=== PATIENT | female | born 1985 | race African-American/Black ===

== ENCOUNTER 2016-10-20 14:15 | Emergency (ER) | payer OTHER ==
[~2016-10-20] VITALS: Ht 175.3 cm; Wt 96.4 kg
[~2016-10-20 14:15] MED LIST: ESTRD2 PO; SERT-234 PO; SPR/100 PO
[2016-10-20 14:25] VITALS: Ht 175.3 cm; Wt 96.4 kg
[2016-10-20] MEDS ORDERED: SPIR25TA89 PO (14:40)
[2016-10-20] MEDS ORDERED: BUSP15TA70 PO (14:40)
[2016-10-20] MEDS ORDERED: RISP1TAB68 PO (14:41)
[2016-10-20 14:43] LABS: BASO % 0.1 %; BASO ABS # 0.01 K/uL (0-0.2); COMPLETE YES; EOS % 0.7 %; HEMATOCRIT 41.5 % (37-47); LYMPH % 39.8 %; LYMPH ABS # 2.68 K/uL (1.2-3.4); MEAN CELL VOLUME 89.1 fL (80-100); MEAN CORPUSCULAR HEMOGLOBIN 29.8 pg (25-34); MEAN CORPUSCULAR HGB CONC 33.5 g/dl (32-36); MEAN PLATELET VOLUME 8.1 fL (7.4-10.4); MONO % 7.6 %; NEUT % 51.8 %; PLATELET COUNT 208 K/uL (130-400); RED BLOOD COUNT 4.66 M/uL (4.2-5.4); WHITE BLOOD COUNT 6.73 K/uL (4.8-10.8)
[2016-10-20 15:02] LABS: ALT/SGPT 18 U/L (12-78); BLOOD UREA NITROGEN 14 mg/dl (7-18); BUN/CREATININE RATIO 16.7 (10-20); CALCIUM 8.7 mg/dl (8.5-10.1); CARBON DIOXIDE 32 mmol/L (21-32); CHLORIDE 102 mmol/L (98-107); CREATININE 0.81 mg/dl (0.60-1.20); GLUCOSE 83 mg/dl (70-99); POTASSIUM 3.6 mmol/L (3.5-5.1); SODIUM 138 mmol/L (136-145)
[2016-10-20 15:04] LABS: ACETAMINOPHEN < 2 ug/ml (10-30)
[2016-10-20 15:07] LABS: URINE APPEARANCE CLEAR (CLEAR); URINE BILIRUBIN NEG (NEG); URINE COLOR YELLOW; URINE NITRITE NEG (NEG); URINE PH 6.5 (4.5-7.5); URINE SPECIFIC GRAVITY 1.031 (1.000-1.030); UROBILINOGEN NEG (NEG)
[2016-10-20 15:10] LABS: PREG INTERNAL NEGATIVE QC NEG CLEAR BACKGROUND; PREG INTERNAL POSITIVE QC POS CONTROL LINE
[2016-10-20 15:12] LABS: ALB/GLOB RATIO 0.8 (0.9-2); ALKALINE PHOSPHATASE 71 U/L (45-117); AST/SGOT 14 U/L (15-37)
[2016-10-20 15:16] LABS: MANUAL MICROSCOPIC REQUIRED? NO; REVIEW REQ? NO
[2016-10-20 15:29] LABS: BENZODIAZEPINE, URINE NEG (NEG); COCAINE,URINE NEG (NEG); PHENCYCLIDINE, URINE NEG (NEG)
[2016-10-20] MEDS ORDERED: ESTRADIOL 1 MG TAB PO STA (22:11)
[2016-10-20] MEDS ORDERED: BusPIRone 15 MG TAB PO STA (22:11)
--- NOTE | 2016-10-20 22:11 | EMERGENCY ROOM VISIT NOTE ---
History Report prepared by Donovan: Raymundo Copeland Under the Supervision of: Dr. Hank Tomas M.D. First contact with patient: 14:34 Chief Complaint: PSYCHIATRIC PROBLEMS Stated Complaint: MENTAL HEALTH History of Present Illness The patient is a 31 year old female who presents to the Emergency Room with complaints of psychiatric problems and overdose occurring last night around 1999. The patient states that last night she took a handful of Risperdal, and she chose this over cutting herself. She states that she was going to take more this morning, but she was too out of it to even move. She denies drinking any alcohol. The patient states she recently went to the doctor to check on the cuts on her wrists that she did about a week ago. She states that she wants to be transferred to the [facility] in [place], and she states that she has been there before. The patient states that she has a history of PTSD, bipolar type 2 disorder, personality disorder, anxiety, and mass depression. Pt denies LOC, headache, fevers, chills, diaphoresis, visual changes, neck pain, chest pain, breathing difficulties, nausea, vomiting, abdominal pain, back pain, melena, hematochezia, urinary symptoms, numbness, weakness, lymphadenopathy, rash, or other complaints. Source of History: patient Onset: 1999 last night Position: other (global) Quality: other (overdose and phychiatric problems) Review of Systems See HPI for pertinent positives and negatives. A total of ten systems were reviewed and were otherwise negative. Past Medical & Surgical Medical Problems: (1) Anxiety (2) Bipolar 2 disorder (3) Borderline personality disorder (4) Depression (5) PTSD (post-traumatic stress disorder) (6) Schizoaffective disorder Family History FH: bipolar disorder FH: depression Social History Smoking Status: Never Smoker Alcohol Use: occasionally Drug Use: none Marital Status: single Housing Status: lives with roommate Occupation Status: employed Current/Historical Medications Scheduled Buspirone Hcl (Buspar), 15 MG PO BID Estradiol (Estradiol), 2 MG PO BID Risperidone (Risperdal), 1 MG PO HS Spironolactone (Aldactone), 50 MG PO BID Allergies Coded Allergies: Wheat (Unverified Allergy, Unknown, GI UPSET, 10/20/16) Uncoded Allergies: DIARY PRODUCTS (Allergy, Severe, GI SYMPTOMS, 01/25/15) Physical Exam Vital Signs Date Time Temp Pulse Resp B/P Pulse Ox O2 Delivery O2 Flow Rate FiO2 10/20/16 16:28 81 18 109/68 100 Room Air 10/20/16 14:25 36.5 84 18 122/69 97 Room Air Physical Exam GENERAL: Awake, alert, well appearing, no distress HENT: Normocephalic, atraumatic. TM's normal. Oropharynx unremarkable. EYES: PERRL. EOMI. Normal conjunctiva. Sclera non-icteric. NECK: Supple. No nuchal rigidity. FROM. No JVD or bruit. RESPIRATORY: CTA CARDIAC: RRR. No murmur. ABDOMEN: Soft, non distended. No tenderness to palpation. No rebound or guarding. No masses. MUSCULOSKELETAL: Unremarkable. No edema. No discoloration. Gross motor strength symmetric. NEURO: Cranial nerves 2-12 grossly intact. Normal sensorium. No sensory or motor deficits noted. Speech normal. No pronator drift. SKIN: No rash or jaundice noted. LYMPH: No adenopathy. PSYCH: Depressed mood. Flat affect. Some suicidal ideation. No homicidal ideation. Medical Decision & Procedures Laboratory Results 10/20/16 14:25 Red Blood Count 4.66, Mean Corpuscular Volume 89.1, Mean Corpuscular Hemoglobin 29.8, Mean Corpuscular Hemoglobin Concent 33.5, Mean Platelet Volume 8.1, Neutrophils (%) (Auto) 51.8, Lymphocytes (%) (Auto) 39.8, Monocytes (%) (Auto) 7.6, Eosinophils (%) (Auto) 0.7, Basophils (%) (Auto) 0.1, Neutrophils # (Auto) 3.48, Lymphocytes # (Auto) 2.68, Monocytes # (Auto) 0.51, Eosinophils # (Auto) 0.05, Basophils # (Auto) 0.01 10/20/16 14:25 Test 10/20/16 00:00 10/20/16 14:25 Urine Color YELLOW Urine Appearance CLEAR (CLEAR) Urine pH 6.5 (4.5-7.5) Urine Specific [place] 1.031 (1.000-1.030) Urine Protein NEG (NEG) Urine Glucose (UA) NEG (NEG) Urine Ketones TRACE (NEG) Urine Occult Blood NEG (NEG) Urine Nitrite NEG (NEG) Urine Bilirubin NEG (NEG) Urine Urobilinogen NEG (NEG) Urine Leukocyte Esterase NEG (NEG) Urine Test NEG (NEG) Urine Opiates Screen POS (NEG) Urine Methadone, Qualitative NEG (NEG) Urine Barbiturates NEG (NEG) Urine Phencyclidine (PCP) Level NEG (NEG) Ur Amphetamine/Methamphetamine NEG (NEG) MDMA (Ecstasy) Screen NEG (NEG) Urine Benzodiazepines Screen NEG (NEG) Urine Cocaine Metabolite NEG (NEG) Urine Marijuana (THC) NEG (NEG) White Blood Count 6.73 K/uL (4.8-10.8) Red Blood Count 4.66 M/uL (4.2-5.4) Hemoglobin 13.9 g/dL (12.0-16.0) Hematocrit 41.5 % (37-47) Mean Corpuscular Volume 89.1 fL (80-100) Mean Corpuscular Hemoglobin 29.8 pg (25-34) Mean Corpuscular Hemoglobin Concent 33.5 g/dl (32-36) Platelet Count 208 K/uL (130-400) Mean Platelet Volume 8.1 fL (7.4-10.4) Neutrophils (%) (Auto) 51.8 % Lymphocytes (%) (Auto) 39.8 % Monocytes (%) (Auto) 7.6 % Eosinophils (%) (Auto) 0.7 % Basophils (%) (Auto) 0.1 % Neutrophils # (Auto) 3.48 K/uL (1.4-6.5) Lymphocytes # (Auto) 2.68 K/uL (1.2-3.4) Monocytes # (Auto) 0.51 K/uL (0.11-0.59) Eosinophils # (Auto) 0.05 K/uL (0-0.5) Basophils # (Auto) 0.01 K/uL (0-0.2) RDW Standard Deviation 44.3 fL (36.4-46.3) RDW Coefficient of Variation 13.7 % (11.5-14.5) Immature Granulocyte % (Auto) 0.0 % Immature Granulocyte # (Auto) 0.00 K/uL (0.00-0.02) Anion Gap 4.0 mmol/L (3-11) Est Creatinine Clear Calc Drug Dose 123.3 ml/min Estimated GFR () 111.4 Estimated GFR (Non- 96.1 BUN/Creatinine Ratio 16.7 (10-20) Calcium Level 8.7 mg/dl (8.5-10.1) Total Bilirubin 0.3 mg/dl (0.2-1) Direct Bilirubin < 0.1 mg/dl (0-0.2) Aspartate Amino Transf (AST/SGOT) 14 U/L (15-37) Alanine Aminotransferase (ALT/SGPT) 18 U/L (12-78) Alkaline Phosphatase 71 U/L (45-117) Total Protein 7.5 gm/dl (6.4-8.2) Albumin 3.4 gm/dl (3.4-5.0) Globulin 4.1 gm/dl (2.5-4.0) Albumin/Globulin Ratio 0.8 (0.9-2) Thyroid Stimulating Hormone (TSH) 2.710 uIu/ml (0.300-4.500) Salicylates Level < 1.7 mg/dl (2.8-20) Acetaminophen Level < 2 ug/ml (10-30) Ethyl Alcohol mg/dL < 3.0 mg/dl (0-3) Laboratory results reviewed by me ECG Indication: other (overdose) Rate (beats per minute): 71 Rhythm: normal sinus Findings: no acute ischemic change, no ectopy ED Course 1434: The patient was evaluated in room C12. A complete history and physical exam was performed. 1540: I reevaluated the patient, and she is fine. 1632: The patient was not accepted to [facility], she will be placed elsewhere 2046: We are still waiting on a bed for this patient. 2129: The patient was signed out to Dr. Johnson. We are still trying to find a bed in [place] for the patient. Medical Decision Triage Nursing notes reviewed. The patient's presentation and history were concerning for suicidal ideation. EtiOlogies such as mood disorder, toxicologic, infection, hypoglycemia, electrolyte abnormalities, cardiac sources, intracerebral event, neurologic, as well as others were entertained. The patient was evaluated. She was doing relatively well. She was sent from the primary clinic for medical clearance prior to going to the [place] psychiatric facility. The patient had unremarkable CBC, urinalysis, chemistry panel, LFTs, TSH, test, alcohol, Tylenol, and aspirin level. The [place] psychiatric facility in [place] was contacted. Unfortunately they are unable to access anyone there unless they arrive prior to 4 PM. It would not be feasible possible. They did authorize for the patient to be admitted elsewhere this evening. A bed search was underway. Our facility is full as is the [facility]. The patient is currently being evaluated by [place] [facility]. The case was signed out to Dr. Johnson at the change of shift. Please see his note for disposition. Daily medications ordered. The chart was completed utilizing [employer] Speech voice recognition software. Grammatical errors, random word insertions, pronoun errors, and incomplete sentences are an occasional consequence of this system due to software limitations, ambient noise, and hardware issues. Any formal questions or concerns about the content, text, or information contained within the body of this dictation should be directly addressed to the physician for clarification. Impression Primary Impression: Mood disorder Additional Impression: Suicidal ideation Scribe Attestation The scribe's documentation has been prepared under my direction and personally reviewed by me in its entirety. I confirm that the note above accurately reflects all work, treatment, procedures, and medical decision making performed by me. Departure Information Dispostion Still a Patient Referrals Evelyn Land (PCP) Patient Instructions My [facility] Problem Qualifiers
[2016-10-20] MEDS ORDERED: SPIRONOLACTONE 25 MG TAB PO ONE (22:15)
[2016-10-20] MEDS ORDERED: RISPERIDONE 1 MG TAB PO ONE (22:15)
--- NOTE | 2016-10-20 23:42 | EMERGENCY ROOM VISIT NOTE ---
ED Visit Note First contact with patient: 23:41 I received this patient at change of shift signout from Dr. COOPER. Please see his note for complete history and physical. The patient is a 31-year-old patient who presented to the emergency department for a mental health evaluation. The patient has had very significant depression symptoms. The patient is also had a recent suicidal gesture with an attempt to take her medications with thoughts of harming herself. The patient was medically cleared in the emergency department. Bed search was underway when I received the patient. At this time she is a voluntary admission. I discussed the case with the emergency department mental health case fitter. At this time the bed search has been suspended until morning when the patient can be referred again to the [facility] [place]. The patient was signed out to Dr. Suresh at change of shift. Please see her note for continuation of care.
--- NOTE | 2016-10-21 04:57 | EMERGENCY ROOM VISIT NOTE ---
ED Visit Note First contact with patient: 01:39 This case was signed out to me at change of shift by Dr. Johnson. The bed search was suspended. The patient [facility] be reeval[facility] in [facility] 0230: Patient is resting comfortably at this time. 0500: The patient is resting comfortably. Morning medications were ordered. 0630: case will be signed out to Dr. Serra at change of shift and the bed search will be resumed.
[2016-10-21] MEDS ORDERED: BusPIRone 15 MG TAB PO SCH (09:00)
[2016-10-21] MEDS ORDERED: SPIRONOLACTONE 25 MG TAB PO SCH (09:00)
[2016-10-21] MEDS ORDERED: ESTRADIOL 1 MG TAB PO SCH (09:00)
--- NOTE | 2016-10-21 15:44 | EMERGENCY ROOM VISIT NOTE ---
ED Visit Note First contact with patient: 06:23 I received this patient in signout at the change of shift from Dr. Halima Suresh pending transferred to the [facility] for inpatient psychiatric treatment. The patient has been accepted to the [facility] but is awaiting transportation. At this time she is resting comfortably and has no complaints. She has signed a 201 and is awaiting transport. The case will be signed out to Dr. Foss at the change of shift.
[2016-10-21] MEDS ORDERED: ESTRADIOL 1 MG TAB PO STA (16:29)
[2016-10-21 20:53] VITALS: BP 128/68; PULSE 77; TEMP 36.7; O2SAT 98
[2016-10-24 00:06] LABS: COD UR NEGATIVE NG/ML (CUTOFF=50); HYDROCOD UR NEGATIVE NG/ML (CUTOFF=50); HYDROMOR UR NEGATIVE NG/ML (CUTOFF=50); MORPHINE UR 192 NG/ML (CUTOFF=50); NORHYDROCODONE CONF UR NEGATIVE NG/ML (CUTOFF=50); OXYMORPH UR NEGATIVE NG/ML (CUTOFF=50)
== END 2016-10-21 20:45 | disposition other institution (70) ==
LOC: EDBD 14:15 → C.EDA 14:16
DX: F39 Unspecified mood [affective] disorder (principal); R45.851 Suicidal ideations; Z81.8 Family history of other mental and behavioral disorders

== ENCOUNTER 2019-03-31 10:20 | Inpatient (IN) ==
--- OUTSIDE RECORDS SUMMARY | 2019-03-31 10:22 | External Medical Summary | Continuity of Care Document ---
:1985 Author Name Katherine Boateng Address Unavailable Unavailable , Care Team Providers Name Role Phone [email or web address] [email or web address] Kike Boateng Unavailable [email or web address] Rachid LAND Unavailable Unavailable Unavailable Unavailable Unavailable Problems High risk medication use (V58.69) (Z79.899) Obesity (278.00) (E66.9) Schizoaffective disorder (295.70) (F25.9) High risk sexual behavior (V69.2) (Z72.51) Insomnia (780.52) (G47.00) Encounter for routine gynecological examination (V72.31) (Z0 1.419) Transgendered (302.50) (F64.1) Allergies and Adverse Reactions No Known Drug Allergies (Allergy) Dairy (Allergy) Medications Estradiol 2 MG Oral Tablet; Take 1 tablet twice daily ALY Land Start: 11-Sep-2014 Quantity: 60 Refills: 2 Benztropine Mesylate 1 MG Oral Tablet; TAKE 1 TABLET T WICE DAILY. ALY Land Start: 02-Oct-2014 Quantity: 60 Refills: 0 carBAMazepine 200 MG Oral Tablet; TAKE 2 TABLETS TWICE DAILY ALY Land Start: 11-Sep-2014 Quantity: 120 Refills: 0 QUEtiapine Fumarate 400 MG Oral Tablet; TAKE 2 TABLETS AT [facility]. Start: 22-Aug-2015 Refills: 0 Premarin 0.625 MG/GM Vaginal Cream; Tuesdays and Thursdays W ALY ledesma Start: 11-Sep-2014 Quantity: 1 30 GM Tube Refills: 2 Spironolactone 50 MG Oral Tablet; TAKE 1 TABLET TWICE DAILY. ALY Land Start: 11-Sep-2014 Quantity: 60 Refills: 6 Procedures History of Breast Reconstruction With Implant Prosthesis Status: Completed History of Eye Surgery Status: Completed History of Sex Reassignment Male To Female Status: Completed Immunizations Immunizations not documented Family History Mother Family history of diabetes mellitus (V18.0) (Z83.3) Status: Active Family history of muscular dystrophy (V17.2) (Z82.0) Status: Active Family history of schizophrenia (V17.0) (Z81.8) Status: Acti ve Family history of Multiple personality (300.14) (F44.81) Sta tus: Active Father Family history of diabetes mellitus (V18.0) (Z83.3) Status: Active Family history of muscular dystrophy (V17.2) (Z82.0) Status: Active Family history of schizophrenia (V17.0) (Z81.8) Status: Acti ve Family history of Multiple personality (300.14) (F44.81) Sta tus: Active Sibling Family history of epilepsy (V17.2) (Z82.0) Status: Active Social History - Smoking Status Never smoker Plan of Treatment Planned Observations Planned Goals not documented Results No Known Results Results not documented
[2019-03-31 11:06] LABS: Appearance Urine Clear (Clear); Bilirubin Urine Negative (Negative); Blood Urine Negative (Negative); Color Urine Yellow; Glucose Urine UA Negative (Negative); Ketones Urine Negative (Negative); Leukocyte Esterase Urine Negative (Negative); Nitrite Urine Negative (Negative); Protein Urine Negative (Negative); Specific Gravity Urine 1.015 (1.000-1.030); Urobilinogen Urine Negative (Negative)
[2019-03-31 11:14] LABS: Basophils # (auto) 0.01 K/uL (0-0.2); Basophils % (auto) 0.2 %; Eosinophils # (auto) 0.05 K/uL (0-0.5); Eosinophils % (auto) 0.9 %; Hematocrit (blood only) 40.3 % (37-47); Hemoglobin 13.2 g/dL (12.0-16.0); Immature Granulocytes # (auto) 0.01 K/uL (0.00-0.02); Immature Granulocytes % (auto) 0.2 %; Lymphocytes # (auto) 2.06 K/uL (1.2-3.4); Lymphocytes % (auto) 38.9 %; Mean Corpuscular Hgb Conc 32.8 g/dL (32-36); Mean Platelet Volume 8.1 fL (7.4-10.4); Monocytes # (auto) 0.38 K/uL (0.11-0.59); Monocytes % (auto) 7.2 %; Neutrophils # (auto) 2.79 K/uL (1.4-6.5); Neutrophils % (auto) 52.6 %; Platelet Count 212 K/uL (130-400); RDW Coefficient of Variation 14.9 % (11.5-14.5); RDW Standard Deviation 47.8 fL (36.4-46.3); Red Blood Count 4.58 M/uL (4.2-5.4)
[2019-03-31 11:31] LABS: Alanine Aminotransferase 26 U/L (12-78); Albumin Level 3.5 gm/dl (3.4-5.0); Aspartate Aminotransferase 16 U/L (15-37); BUN Creatinine Ratio 9.9 (10-20); Blood Urea Nitrogen 9 mg/dl (7-18); Calcium 8.5 mg/dl (8.5-10.1); Carbon Dioxide 29 mmol/L (21-32); Chloride 106 mmol/L (98-107); Est GFR (African American) 91.1; Est GFR (Non-African American) 78.6; Glucose 89 mg/dl (70-99); Potassium 3.8 mmol/L (3.5-5.1); Sodium 140 mmol/L (136-145)
[2019-03-31 11:35] LABS: Amphetamines+Metham, Urine Neg (Neg); Barbiturates, Urine Neg (Neg); Benzodiazepine, Urine Neg (Neg); Cocaine, Urine Neg (Neg); MDMA (Ecstacy), Urine Pos (Neg); Methadone, Urine Neg (Neg); Opiate, Urine Neg (Neg); Phencyclidine, Urine Neg (Neg)
[2019-03-31 11:41] LABS: Albumin Globulin Ratio 0.9 (0.9-2); Alkaline Phosphatase 74 U/L (45-117); Bilirubin,Total 0.3 mg/dl (0.2-1); Globulin 3.8 gm/dl (2.5-4.0); Total Protein 7.3 gm/dl (6.4-8.2)
[2019-03-31 11:44] LABS: Acetaminophen < 2 ug/ml (10-30); Salicylate < 1.7 mg/dl (2.8-20)
--- NOTE | 2019-03-31 13:09 | Emergency Department Note ---
Entered by Emilee Strange acting as a scribe for History of Present Illness General Chief complaint: Mental Health Evaluation Stated complaint: mhid Source: patient History of Present Illness Provider complaint: suicidal ideation Onset (ago): unknown (constant) Location: left and right Severity: similar to prior episodes Maximum Pain Intensity: 0 Quality: + other (suicidal ideation) Relieved By: + medication Associated symptoms: + other (Negative abdominal pain); no chest pain, no fever/chills and no nausea/vomiting The patient is a 34 year old female who presents to the Emergency Room with complaints of suicidal ideation. The patient states that she has worsening depression and medication has helped "balance her out". The patient reports visual hallucination of a little girls, a man with a black zavala, and a centipede with a face. She states visual hallucinations are not unusual for her. The patient reports two days ago she drank a teaspoon of household bleach and Febreeze.this was not an attempt to hurt her self. The patient denies recent cutting incidents but has done so in the past. The patient denies fever, vomiting, chest pain or abdominal pain. She denies any drug or alcohol use. She was evaluated by can help and referred here for further care. Home Medications Home Medications Medication Instructions Recorded Confirmed Type estradiol cypionate 1 dose IM [id number] 05/24/18 03/31/19 History [Depo-Estradiol] aripiprazole [Daniel Maintena] 300 mg IM DIRECTED 03/31/19 03/31/19 History hydroxyzine HCl 10 mg PO QID PRN 03/31/19 03/31/19 History melatonin 3 mg PO HS PRN 03/31/19 03/31/19 History methylphenidate 18 mg PO QAM 03/31/19 03/31/19 History omeprazole 20 mg PO DAILY 03/31/19 03/31/19 History prazosin 2 mg PO BID 03/31/19 03/31/19 History trazodone 100 mg PO DAILY 03/31/19 03/31/19 History Allergies Allergy/AdvReac Type Severity Reaction Status Date / Time milk Allergy Severe GI SYMPTOMS Verified 03/31/19 10:47 wheat Allergy Unknown GI UPSET Verified 03/31/19 10:47 Past Med/Surg History Medical History Suicidal ideation (Acute) Depression Social History Preferred Language: Indonesian Feels Safe at Home: Yes Smoking Status: Never smoker Review of Systems See HPI for pertinent positives & negatives. and A total of 10 systems reviewed and were otherwise negative Physical Exam Vital Signs Vital Signs - 24 hr 03/31/19 10:37 Temperature 36.8 C Temperature Source Oral Sepsis Recent Fever Within 48 Hours No Sepsis New/Unexplained Change in Mental Status No Sepsis Action Taken by Nursing No Action Required Pulse Rate 77 Pulse Rhythm Regular Pulse Strength Normal Respiratory Rate 18 Respiratory Effort / Characteristics Non-Labored Spontaneous Respiratory Depth Normal Respiratory Pattern Regular Blood Pressure 129/68 Blood Pressure Mean 88 Pulse Oximetry 98 Oxygen Delivery Method Room Air Constitutional: Vital signs reviewed. Eyes: Pupils are equal round reactive to light. Conjunctiva are noninjected. ENT: Pharynx is clear without erythema or exudate. Mucous membranes are moist. Neck supple without meningeal signs. Respiratory: Clear to auscultation bilaterally. Breath sounds are equal bilaterally. Cardiovascular: Regular rate and rhythm. No rubs or gallops. GI: Soft, nondistended and nontender. Bowel sounds are present. Musculoskeletal: No peripheral edema. Healed lacerations to the right wrist. Integumentary: No cyanosis. Neurological: The patient is awake and alert. No focal deficits. Psychiatric: Flat affect. Not tearful Course 1113: Past medical records reviewed. The patient was evaluated in room A7. A complete history and physical exam was performed.' [id number]: Upon reevaluation, the patient is resting. I discussed findings and results with her. She verbalized agreement of the treatment plan. She accepted further evaluation from [address] [place] [address]. Administered Medications Medical Decision Making Differential Diagnosis Differential Diagnosis includes: Mood disorder, suicidal gesture, post traumatic stress disorder, illicit drug use, overdose as well as others were entertained. Medical Records Attestation: I reviewed the patient's medical records. The patient was seen in 2018 for mental health reasons. The patient was accepted to an inpatient psychiatric facility. The patient has a history of worsening depression, SI, visual hallucinations, MDD, anxiety, PTSD, borderline personality disorder and psychosis. The patient drank bleach and Febreeze 3 days ago. Home Medications Current Medication List: was personally reviewed by me Laboratory Data Attestation: I reviewed the patient's lab results. Result diagrams: 03/31/19 11:03 03/31/19 11:03 Lab Results 03/31/19 03/31/19 03/31/19 Range/Units 10:30 10:30 11:03 WBC 5.30 (4.8-10.8) K/uL RBC 4.58 (4.2-5.4) M/uL Hgb 13.2 (12.0-16.0) g/dL Hct 40.3 (37-47) % MCV 88.0 (80-100) fL MCH 28.8 (25-34) pg MCHC 32.8 (32-36) g/dL RDW Std Deviation 47.8 H (36.4-46.3) fL RDW Coeff of Faviola 14.9 H (11.5-14.5) % Plt Count 212 (130-400) K/uL MPV 8.1 (7.4-10.4) fL Immature Gran % (Auto) 0.2 % Neut % (Auto) 52.6 % Lymph % (Auto) 38.9 % Patrick % (Auto) 7.2 % Eos % (Auto) 0.9 % Baso % (Auto) 0.2 % Immature Gran # (Auto) 0.01 (0.00-0.02) K/uL Neut # (Auto) 2.79 (1.4-6.5) K/uL Lymph # (Auto) 2.06 (1.2-3.4) K/uL Patrick # (Auto) 0.38 (0.11-0.59) K/uL Eos # (Auto) 0.05 (0-0.5) K/uL Baso # (Auto) 0.01 (0-0.2) K/uL Sodium (136-145) mmol/L Potassium (3.5-5.1) mmol/L Chloride (98-107) mmol/L Carbon Dioxide (21-32) mmol/L Anion Gap (3-11) BUN (7-18) mg/dl Creatinine (0.6-1.2) mg/dl Est Cr Clr Drug Dosing Est GFR ( Amer) Est GFR (Non-Af Amer) BUN/Creatinine Ratio (10-20) Glucose (70-99) mg/dl Calcium (8.5-10.1) mg/dl Total Bilirubin (0.2-1) mg/dl AST (15-37) U/L ALT (12-78) U/L Alkaline Phosphatase (45-117) U/L Total Protein (6.4-8.2) gm/dl Albumin (3.4-5.0) gm/dl Globulin (2.5-4.0) gm/dl Albumin/Globulin Ratio (0.9-2) TSH (0.300-4.500) uIu/ml Urine Color Yellow Urine Appearance Clear (Clear) Urine pH 5.0 (4.5-7.5) Ur Specific [place] 1.015 (1.000-1.030) Urine Protein Negative (Negative) Urine Glucose (UA) Negative (Negative) Urine Ketones Negative (Negative) Urine Blood Negative (Negative) Urine Nitrite Negative (Negative) Urine Bilirubin Negative (Negative) Urine Urobilinogen Negative (Negative) Ur Leukocyte Esterase Negative (Negative) Salicylates (2.8-20) mg/dl Urine Opiates Screen Neg (Neg) Ur Methadone, Qual Neg (Neg) Acetaminophen (10-30) ug/ml Urine Barbiturates Neg (Neg) Ur Phencyclidine (PCP) Neg (Neg) U Amphetamin/Meth Scrn Neg (Neg) MDMA (Ecstasy) Screen Pos H (Neg) U Benzodiazepines Scrn Neg (Neg) Ur Cocaine Metabolite Neg (Neg) U Marijuana (THC) Screen Neg (Neg) Ethyl Alcohol mg/dL (0-3) mg/dl 03/31/19 03/31/19 03/31/19 Range/Units 11:03 11:03 11:03 WBC (4.8-10.8) K/uL RBC (4.2-5.4) M/uL Hgb (12.0-16.0) g/dL Hct (37-47) % MCV (80-100) fL MCH (25-34) pg MCHC (32-36) g/dL RDW Std Deviation (36.4-46.3) fL RDW Coeff of Faviola (11.5-14.5) % Plt Count (130-400) K/uL MPV (7.4-10.4) fL Immature Gran % (Auto) % Neut % (Auto) % Lymph % (Auto) % Patrick % (Auto) % Eos % (Auto) % Baso % (Auto) % Immature Gran # (Auto) (0.00-0.02) K/uL Neut # (Auto) (1.4-6.5) K/uL Lymph # (Auto) (1.2-3.4) K/uL Patrick # (Auto) (0.11-0.59) K/uL Eos # (Auto) (0-0.5) K/uL Baso # (Auto) (0-0.2) K/uL Sodium 140 (136-145) mmol/L Potassium 3.8 (3.5-5.1) mmol/L Chloride 106 (98-107) mmol/L Carbon Dioxide 29 (21-32) mmol/L Anion Gap 5.0 (3-11) BUN 9 (7-18) mg/dl Creatinine 0.94 (0.6-1.2) mg/dl Est Cr Clr Drug Dosing Not Reportable Est GFR ( Amer) 91.1 Est GFR (Non-Af Amer) 78.6 BUN/Creatinine Ratio 9.9 L (10-20) Glucose 89 (70-99) mg/dl Calcium 8.5 (8.5-10.1) mg/dl Total Bilirubin 0.3 (0.2-1) mg/dl AST 16 (15-37) U/L ALT 26 (12-78) U/L Alkaline Phosphatase 74 (45-117) U/L Total Protein 7.3 (6.4-8.2) gm/dl Albumin 3.5 (3.4-5.0) gm/dl Globulin 3.8 (2.5-4.0) gm/dl Albumin/Globulin Ratio 0.9 (0.9-2) TSH 2.890 (0.300-4.500) uIu/ml Urine Color Urine Appearance (Clear) Urine pH (4.5-7.5) Ur Specific [place] (1.000-1.030) Urine Protein (Negative) Urine Glucose (UA) (Negative) Urine Ketones (Negative) Urine Blood (Negative) Urine Nitrite (Negative) Urine Bilirubin (Negative) Urine Urobilinogen (Negative) Ur Leukocyte Esterase (Negative) Salicylates < 1.7 L (2.8-20) mg/dl Urine Opiates Screen (Neg) Ur Methadone, Qual (Neg) Acetaminophen < 2 L (10-30) ug/ml Urine Barbiturates (Neg) Ur Phencyclidine (PCP) (Neg) U Amphetamin/Meth Scrn (Neg) MDMA (Ecstasy) Screen (Neg) U Benzodiazepines Scrn (Neg) Ur Cocaine Metabolite (Neg) U Marijuana (THC) Screen (Neg) Ethyl Alcohol mg/dL < 3.0 (0-3) mg/dl Blood Pressure Blood Pressure Findings: Elevated blood pressure Blood Pressure Disposition: elevated BP felt to be situational MDM Narrative I did evaluate the patient as noted above. The patient was sent here by [facility] due to an intentional ingestion of bleach and Febreeze as well as suicidal ideation. The patient does have a history of depression as well as PTSD. She denies any physical complaints. The ingestion was 2 days ago and she only had a teaspoon of each substance. I did order a urine analysis. I did order and review the patient's blood work as noted in the electronic medical record. Her labs are unremarkable. I did medically clear the patient. The patient was evaluated by 3 S. She was admitted upstairs to the behavioral health floor. Impression & Plan Suicidal ideation, Mood disorder, Bleach ingestion Discharge Plan Visit Data Chief Complaint: Mental Health Evaluation Stated Complaint: mhid ED Provider: Suhas Ny Discharge Problem: Suicidal ideation, Mood disorder, Bleach ingestion Patient Disposition: Being Evaluated by Hospitalist Discharge Instructions Interventions: ED Discharge Assessment Last Done: 03/31/19 16:20 Discharge Problem: Bleach ingestion Qualifiers: Encounter type: initial encounter Injury intent: intentional self-harm Qualified Code(s): T54.92XA - Toxic effect of unspecified corrosive substance, intentional self-harm, initial encounter The ronnellibvik's documentation has been prepared under my direction and personally reviewed by me in its entirety. I confirm that the note above accurately reflects all work, treatment, procedures, and medical decision making performed by me.
[2019-03-31] MEDS ORDERED: hydrOXYzine HCl 10 MG TAB PO PRN (15:25)
[2019-03-31] MEDS ORDERED: ACETAMINOPHEN 325 MG TAB PO PRN (15:28)
[2019-03-31] MEDS ORDERED: BISMUTH SUBSALICYLATE PER ML OMNICELL CHARGE PO PRN (15:28)
[2019-03-31] MEDS ORDERED: ALUMINUM/MAGNESIUM SUSP 30 ML UDC PO PRN (15:28)
[2019-03-31] MEDS ORDERED: SODIUM CHLORIDE 0.65% NA SOLN 45 ML (OCEAN) PRN (15:28)
[2019-03-31] MEDS ORDERED: MAGNESIUM HYDROXIDE SUSP 30 ML UDC PO PRN (15:28)
[2019-03-31] MEDS ORDERED: ARIPIPRAZOLE 300 MG IM SCH (15:30)
[2019-03-31] MEDS ORDERED: ESTRADIOL CYPIONATE 5 MG IM SCH (15:30)
[2019-03-31] MEDS ORDERED: TRAZODONE HCL 100 MG TAB PO SCH (21:00)
[2019-03-31] MEDS: IBUPROFEN 800 MG TAB PO SCH (21:21)
[2019-03-31] MEDS: guaiFENesin 200 MG TAB PO SCH (21:21)
[2019-03-31] MEDS: TRAZODONE HCL 100 MG TAB PO SCH (21:22)
[2019-03-31] MEDS: PRAZOSIN HCL 1 MG CAP PO SCH (21:22)
[2019-03-31] MEDS: ALBUTEROL HFA 8 GM INHALER INH SCH (21:22)
[2019-03-31] MEDS ORDERED: NON-FORMULARY MEDICATION (Melatonin 6 MG) PO SCH (22:00)
[2019-04-01] MEDS ORDERED: LORATADINE 10 MG TAB PO SCH (09:00)
[2019-04-01] MEDS ORDERED: PREMARIN VAG CRM 14 APPLN/30 GM TUBE PV SCH (09:00)
[2019-04-01] MEDS: PANTOprazole 40 MG TAB PO SCH (10:00)
[2019-04-01] MEDS: ALBUTEROL HFA 8 GM INHALER INH SCH ×3 (10:01→21:24)
[2019-04-01] MEDS: IBUPROFEN 800 MG TAB PO SCH (10:06)
[2019-04-01] MEDS: guaiFENesin 200 MG TAB PO SCH (10:07)
[2019-04-01] MEDS: PRAZOSIN HCL 1 MG CAP PO SCH ×2 (10:07→21:24)
--- NOTE | 2019-04-01 16:10 | History & Physical ---
Date of Service April 01, 2019 Impression / Recommendations Impression This 34-year-old woman presents with a known diagnosis of bipolar disorder as well as a diagnosis of borderline personality disorder and posttraumatic stress disorder. She was admitted on the recommendation of an outpatient provider after the outpatient provider was informed by the patient that the patient had sequentially placed liquid bleach and a liquid fabric softener into her mouth, but probably expelled both without swallowing either because of the noxious taste. This reportedly had occurred on the day prior to her presentation in the emergency room, and at the time of her evaluation in the emergency room the patient was denying suicidal ideation. Today, she tells me that she was, in fact, having vague thoughts of suicide when she placed the foreign substances into her mouth, but tells me that she was primarily focused on trying to "reset" her circumstances, which she described as being "stuck." She also tells me that she was frightened and disturbed by the recurrence of her troubling visual hallucinations which include at various times images of the same 3 things; namely a group of young girls playing "peConnected," a large centipede with the face of a human being, and a cloaked hooded figure that she says appears to be a ghoul. She does not recognize any of the figures, but finds these hallucinations to be very disturbing. The patient does tell me that although she does not have a known history of a seizure disorder, she has had one concussion and was rendered unconscious by a head injury that occurred prior to the onset of the visual hallucinations. The patient's symptoms of bipolar disorder reportedly include fairly typical symptoms of depression during the depressed phase as well as manic symptoms that include excessive spending, increased energy, impulsive behaviors, including impulsive spending and impulsive sexual behaviors. She tells us that she has been feeling somewhat depressed for the past month or so, but that her decision to consume noxious chemical substances was unplanned and impulsive. The patient's visual hallucinations have occurred off and on for a number of years, but postdated a head injury that she believes occurred sometime in the mid to late . The patient tells me that the visual hallucinations are transparent or trans-lucid but, instead, appear to be solid figures not unlike her perception of real people. The patient does have some insight into the fact that these apparitions are not real. Nevertheless, she finds them to be extremely disturbing and frightening. There may be a connection between the patient's head injury and these disturbances, as a function of complex partial seizures. However, she tells us that aripiprazole has been quite effective, for the most part, in controlling the hallucinations as well as controlling her mood swings. Her most recent dose of Abilify Maintena was Abilify Maintena at 300 mg IM on 03/14/2019. We will recommend increasing her dose of Abilify Maintena to a dose of 400 mg IM, beginning 4 weeks after 03/14/2019. We will also supplement Abilify Maintena with oral aripiprazole 10 mg daily. (1) Bipolar 2 disorder: 04/01/19 -The patient provides a psychiatric history, consistent with bipolar disorder. -Her report is that she has been fairly stable on aripiprazole, most recently Abilify Maintena 300 mg every 4 weeks. -Specifically, she reports that although she has had some feelings of depression, she has not had elevated mood and has been able to function. -The patient tells me that she is fond of and trusts her outpatient psy chiatrist at the [facility] in [place] Present on Admission?: Yes (2) Borderline personality disorder: 04/01 -The patient describes a long-standing history, dating back to childhood, of difficulty regulating her mood and controlling her behaviors. These problematic behaviors have included intentional self-injurious behaviors, other impulsive acts that are not associated with klaudia or hypomania, a tendency to over value and devalue others, difficulty with personal identity, and difficulty sustaining relationships. -Nevertheless, the patient on many levels appears to be fairly high functioning, at least as she presents herself to us. Reports that she is a full-time student at [employer] have not yet been confirmed, but it has been confirmed that she has a background. Is also apparent that the patient has had a number of personal accomplishments. -We are encouraging the patient to participate in individual, group, and activity therapies as a way of identifying improved individual coping strategies. (3) Suicidal ideation: 04/01 -The patient spontaneously tells us that she was not making a suicide "gesture," and that she had had thoughts of causing her own . However, she notes that primarily she was disturbed by her troubling visual hallucinations, felt discouraged, and thought that perhaps an act such as drinking bleach would somehow allow her to enjoy a "reset" of her distress. -The patient is currently reporting that she is not having any thoughts of suicide and, in fact, has not had thoughts of suicide since the episode that precipitated the admission. -The patient refers to her active placing bleach and fabric softener into her mouth as "stupid" and notes that she had not been aware that it might have killed her or that it might have resulted in esophageal scarring that would possibly have interfered with her ability to eat and drink normally. She refers to the episode as a "big mistake." Inventory Assets Strengths: Intelligent. Determined. Career oriented. Needs: Improved mood regulation. Resolution of impulsive behaviors. Improved individual coping strategies. Risk Factors Assessment Male: No : No Do You Have Access To A Gun?: No Health Problems: No Mental Health Diagnoses: Yes Substance Use Disorders: No Previous Attempt: Yes Previous Attempt; Highly Lethal: Yes Previous Attempt; Planned: Yes Previous Attempt; Didn't Tell Anyone: Yes Family History of Suicide: No (The patient says she does not know much about her family history and cannot say for sure if there is or is not a history of suicide. However, she believes that there is not.) Previous Psychiatric Hospitalization: No (As above, the patient knows little about her family of origin.) Hopelessness: No Smoker: No Protective Factors Assessment Anabaptist Beliefs: Yes (The patient says that she is starting Buddhism) : No Responsible for Young Children: No Employed: No (Receives disability, both [employer] and SSI) Stable Relationships: Yes Supportive Family: No Good Rapport with Provider: Yes Absence of Any Risk Factors Above: No Psychiatric History Identifying Data EUGENE JIMENES is a 34-year-old F who currently lives in [place], [place] with serveral roommates. She has a history of bipolar II disorder and borderline personality disorder. She was admitted on 03/31/19 15:29 on a 201 voluntary agreement after she disclosed to an outpatient provider that she had placed liquid laundry bleach and a liquid fabric softener in her mouth briefly, and then spit both out immediately without swallowing either. Chief Complaint "My visions were getting worse." History of Present Illness The patient is a 34-year-old female (born male, status post gender reassignment surgery) with a long psychiatric history as well as a history of multiple psychiatric hospitalizations, often due to suicide threats or suicide attempts. The patient reports that she had been feeling somewhat depressed for the past month or 2 and, rather impulsively, decided to "do a reset" by sequentially taking which she referred to as a "sip" of liquid fabric softener and a "sip" of liquid bleach. She reports that both substances were noxious and she immediately spit them out and rinsed her mouth. She explains that by "reset" she meant that she thought that a self-harm gesture of this nature would somehow allow her to get a fresh start. She tells me that she did not intend to kill herself. She also reports that she feels that the behavior was "stupid" and she notes that she is frightened by the fact that she has been told that she ran a risk of scarring her esophagus to the degree that she would have difficulty swallowing food normally. (She reports that she has no tenderness, soreness, or other mouth symptoms at present.) The patient also tells me that she has a history of bipolar disorder as well as borderline personality disorder. She notes that when depressed, she tends to become withdrawn, apathetic, irritable, anergic, anhedonic, and sleepless. The patient notes that during manic episodes she has increased energy, decreased desire for sleep, and exercises impulsive behaviors with very poor judgmentsuch as spending "everything in my bank account on things I do not need," and engaging in sexual activities with strangers. The patient tells me that she has been frustrated recently by the recurrence of disturbing visual hallucinations. She notes that these have largely been under control until recently with Abilify Maintena 300 mg daily. The patient reports that the visual hallucinations are not accompanied by auditory hallucinations, and the visual hallucinations consist of 3 different "visions." These include a group of young girls playing "[employer]," a centipede that has a human face, and in apparition that is wearing a hooded and suggests a gruel or "the grim reaper." She does not recognize any of the persons in the visions that she experiences. She also has a history of a very traumatic childhood, and certain symptoms of PTSD including nightmares, and flashbacks. However, she notes that these have been much better recently a she is no longer experiences an exaggerated startle response. The patient was 1 of her mother's 10 children. The patient's father was not part of her childhood, and she tells me that she only met him once. The patient's mother decided to relinquish custody of all 10 children. Reportedly 7 of the 10 children were sent to live with other relatives, while the patient and 2 of her siblings were placed into foster care. This circumstance allowed the 7 siblings to maintain contact and to continue to feel part of the larger family, while the patient and her 2 remaining siblings were in various foster homes and had little or no contact with the other siblings. She tells me that at least 1 of her step parents publicly referred to her as "1 of God's unwanted children"and she always felt rejected and unwanted. Nevertheless, she worked hard to get an education, entered the , and juan alberto in the ranks of the . Her goal is to eventually become an officer in the , but she is aware that she has been told that she will not be able to reenlist at this point because she threatened physical harm against a training associate who commanded her to engage in an activity that the patient did not think should be a priority. 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 Past Psychiatric History Current Psychiatric Diagnosis: MDD, PTSD Do You Have Access To A Gun?: No Describe Attempts in the Past: Multiple overdoses, cut wrist and overdose on chemicals 2 days ago Allergies Allergy/AdvReac Type Severity Reaction Status Date / Time milk Allergy Severe GI SYMPTOMS Verified 03/31/19 10:47 wheat Allergy Unknown GI UPSET Verified 03/31/19 10:47 Home Medications Home Medications Medication Instructions Recorded Confirmed Type albuterol sulfate 2 puff INHALATION TID 03/31/19 03/31/19 History aripiprazole [Abilify Maintena] 400 mg IM MONTHLY 03/31/19 03/31/19 History estradiol valerate See Rx Instructions .ROUTE .COMPLEX 03/31/19 03/31/19 History hydroxyzine HCl 10 mg PO BID PRN 03/31/19 03/31/19 History melatonin 6 mg PO HS 03/31/19 03/31/19 History methylphenidate HCl [Concerta] 18 mg PO QAM 03/31/19 03/31/19 History omeprazole 20 mg PO DAILY 03/31/19 03/31/19 History prazosin 2 mg PO HS 03/31/19 03/31/19 History trazodone 200 mg PO HS 03/31/19 03/31/19 History Family History Family History of: None Alcohol History Hx of Alcohol Use Over the Past 12 Months: No AUDIT Total Score: 0 Smoking Use Have You Smoked or Used Tobacco Products in the Last 30 Days: No Smoking Status: Never smoker Substance History Hx of Prescription Med Misuse Over the Past 12 Months: No Hx of Over the Counter Med Misuse Over the Past 12 Months: No Hx of Inhalent Misuse Over the Past 12 Months: No Hx of Organic Substance Use Over the Past 12 Months: No Hx of Illegal Substances/Street Drug Use Over Past 12 Months: No Problems as a Result of Past Substance Use: None Identified Personal History Living Arrangements: Apartment Living Arrangements Comments: Has been living at [address] [place] [address] with a friend. Able to move into new apartment on 04/02 with a roommate. Highest Grade Completed: College Highest Grade Completed Comment: Has a Bachelor's Degree in Economics, stated she's working on her 2nd Bachelor's Degree in Statistical and Data Analysis Marital Status: Single Number Of Children: 0 Beliefs That Will Affect Care: None and Anabaptist Patient History Medical History Suicidal ideation (Acute) Depression Social History Preferred Language: Thai Communication Ability: Effective Staff Air Defense Officer Required: No Beliefs That Will Affect Care: None and Anabaptist Anabaptist Beliefs: Patient doesn not eat pork Feels Safe at Home: Yes Smoking Status: Never smoker Review of Systems Review of Systems: All systems reviewed & are unremarkable except as noted in HPI & below The admission somatic history, review of systems, and physical examination completed by Dr. Elia Bloom MD of the emergency department has been reviewed and is accepted for purposes of medical clearance to the behavioral health unit. Physical Exam Psychiatric: Orientation: oriented x 3 Apperance: appropriately dressed and appropriately groomed Eye Contact: + fair eye contact Motor Behavior: steady gait and station Speech: normal rate/rhythm/volume of speech Affect: + constricted affect "A little down. Better today." Thought Process: goal directed thought process, linear/logical thought process and clear/coherent thought process Thought Content: reality based without delusions The patient acknowledges that she had suicidal thoughts several days ago, but denies any current suicidal thoughts. She also reports that she has no suicidal plan and no suicidal intent. Homicidal Thoughts: denies homicidal thoughts Hallucinations: + visual hallucinations; no auditory hallucinations The patient reports that she sees images of 3 things: A group of young girls playing "[employer]," a figure that is described as being dressed as a ghoul or "the grim reaper", and a large centipede that has a human face. She does not recognize any of these individuals as being person she knows. Cognition: recent memory grossly intact, remote memory grossly intact, attention grossly intact and language grossly intact Estimated Intelligence: + above average estimated intelligence Insight: + fair insight Judgement: + poor judgement Today, the patient recognizes that was an exercise and poor judgment to impulsively place liquid bleach and a fabric softener into her mouth. She reports the behavior was impulsive and recognizes that it was also misguided. Vital Signs (Past 24 Hours): Last Vital Signs Temp 36.5 C 04/01/19 06:00 Pulse 93 H 04/01/19 06:47 Resp 17 04/01/19 06:47 BP 101/66 04/01/19 06:47 Pulse Ox 100 03/31/19 16:53 Results & Data Current Inpatient Medications Current Inpatient Medications: Current Inpatient Medications Acetaminophen (Tylenol) 650 mg PO Q4H PRN PRN Reason: Headache or Minor Fever Stop: 04/30/19 15:27 Al Hydrox/Mg Hydrox/Simethicone (Maalox) 30 ml PO Q4H PRN PRN Reason: GI Upset Stop: 04/30/19 15:27 Albuterol (Ventolin Hfa) 2 puffs INH TID JAH Stop: 04/30/19 20:59 Last Admin: 04/01/19 13:29 Dose: 2 puffs Documented by: Bismuth Subsalicylate (Kaopectate) 15 ml PO PRN PRN PRN Reason: Loose Stool Stop: 04/30/19 15:27 Hydroxyzine HCl (Vistaril) 10 mg PO QID PRN PRN Reason: Anxiety Stop: 04/30/19 15:24 Hydroxyzine HCl (Vistaril) 50 mg PO HSZ PRN PRN Reason: Insomnia Stop: 04/30/19 15:27 Last Admin: 03/31/19 21:52 Dose: 50 mg Documented by: Magnesium Hydroxide (Milk Of Magnesia) 30 ml PO DAILY PRN PRN Reason: Heartburn Stop: 04/30/19 15:27 Last Admin: 03/31/19 21:54 Dose: 30 ml Documented by: Miscellaneous (Order Awaiting Action) 1 ea N/A QS JAH Stop: 05/07/19 00:00 Miscellaneous (Order Awaiting Action) 1 ea N/A QS JAH Stop: 05/01/19 00:00 Last Admin: 04/01/19 01:53 Dose: Not Given Documented by: Pantoprazole Sodium (Protonix) 40 mg PO DAILY JAH Stop: 05/01/19 08:59 Last Admin: 04/01/19 10:00 Dose: 40 mg Documented by: Prazosin HCl (Prazosin Hcl) 2 mg PO BID JAH Stop: 04/30/19 20:59 Last Admin: 04/01/19 10:07 Dose: Not Given Documented by: Sodium Chloride (Crockett Nasal) 1 - 2 sprays NA PRN PRN PRN Reason: Nasal Dryness/Congestion Stop: 04/30/19 15:27 Trazodone HCl (Desyrel) 200 mg PO HS JAH Stop: 04/30/19 21:59 Last Admin: 03/31/19 21:22 Dose: 200 mg Documented by: CPT Code CPT Code Initial Hospital Care: 55892
[2019-04-01] MEDS: ARIPiprazole 10 MG TAB PO SCH (17:11)
[2019-04-01] MEDS: TRAZODONE HCL 100 MG TAB PO SCH (21:24)
--- NOTE | 2019-04-02 08:47 | Psychiatric Progress Note ---
Date of Service April 02, 2019 Impression / Recommendations Impression This 34-year-old woman presents with a known diagnosis of bipolar disorder as well as a diagnosis of borderline personality disorder and posttraumatic stress disorder. She was admitted on the recommendation of an outpatient provider after the patient reported drinking liquid bleach and fabric softener, which she then spit out without swallowing either because of the noxious taste. She endorsed suicidal thoughts and felt frightened and disturbed by the recurrence of her troubling visual hallucinations. As she reported a history of concussion and with loss of consciousness from a head injury that occurred prior to the onset of the visual hallucinations, her Keppra was increased on admission due to concerns that this may be causing her hallucinations. She also reported depression for the past month, and it was recommended that her Abilify Maintena (received 300 mg IM on 03/14/2019) be increased to 400 mg IM, and oral aripiprazole 10 mg daily was added for supplementation. (1) Bipolar 2 disorder: 04/01/19 -The patient provides a psychiatric history, consistent with bipolar disorder. -Her report is that she has been fairly stable on aripiprazole, most recently Abilify Maintena 300 mg every 4 weeks. -Specifically, she reports that although she has had some feelings of depression, she has not had elevated mood and has been able to function. -The patient tells me that she is fond of and trusts her outpatient psychiatrist at the [facility] in [place] -Oral aripiprazole 10 mg daily added, recommend 400 mg Abilify Maintena at the time of her next injection. 04/02 -Fasting labs ordered for tomorrow. -Family meeting held with patient's friends, who encouraged her to fully participate in treatment and explore options for increased outpatient supports, due to the severity of her symptoms and recent mood episodes with suicidal ideation. -Refer for a blended case picker. She is also considering the healing room and a flight communications specialist. Present on Admission?: Yes (2) Borderline personality disorder: 04/01 -The patient describes a long-standing history, dating back to childhood, of difficulty regulating her mood and controlling her behaviors. These problematic behaviors have included intentional self-injurious behaviors, other impulsive acts that are not associated with klaudia or hypomania, a tendency to over value and devalue others, difficulty with personal identity, and difficulty sustaining relationships. -Nevertheless, the patient on many levels appears to be fairly high functioning, at least as she presents herself to us. Reports that she is a full-time student at [employer] have not yet been confirmed, but it has been confirmed that she has a background. Is also apparent that the patient has had a number of personal accomplishments. -We are encouraging the patient to participate in individual, group, and activity therapies as a way of identifying improved individual coping strategies. Present on Admission?: Yes (3) Suicidal ideation: 04/01 -The patient spontaneously tells us that she was not making a suicide "gesture," and that she had had thoughts of causing her own . However, she notes that primarily she was disturbed by her troubling visual hallucinations, felt discouraged, and thought that perhaps an act such as drinking bleach would somehow allow her to enjoy a "reset" of her distress. -The patient is currently reporting that she is not having any thoughts of suicide and, in fact, has not had thoughts of suicide since the episode that precipitated the admission. -The patient refers to her active placing bleach and fabric softener into her mouth as "stupid" and notes that she had not been aware that it might have killed her or that it might have resulted in esophageal scarring that would possibly have interfered with her ability to eat and drink normally. She refers to the episode as a "big mistake." Present on Admission?: Yes (4) PTSD (post-traumatic stress disorder): 04/02 -patient continued on her home dose of prazosin. Present on Admission?: Yes Inventory Assets Strengths: Intelligent. Determined. Career oriented. Needs: Improved mood regulation. Resolution of impulsive behaviors. Improved individual coping strategies. Risk Factors Assessment Male: No : No Do You Have Access To A Gun?: No Health Problems: No Mental Health Diagnoses: Yes Substance Use Disorders: No Previous Attempt: Yes Previous Attempt; Highly Lethal: Yes Previous Attempt; Planned: Yes Previous Attempt; Didn't Tell Anyone: Yes Family History of Suicide: No (The patient says she does not know much about her family history and cannot say for sure if there is or is not a history of suicide. However, she believes that there is not.) Previous Psychiatric Hospitalization: No (As above, the patient knows little about her family of origin.) Hopelessness: No Smoker: No Protective Factors Assessment Congregational Beliefs: Yes (The patient says that she is starting Nondenominational) : No Responsible for Young Children: No Employed: No (Receives disability, both and SSI) Stable Relationships: Yes Supportive Family: No Good Rapport with Provider: Yes Absence of Any Risk Factors Above: No Interval History Identifying Information EUGENE JIMENES is a 34-year-old transgender male to female patient who lives in [place], [place] with roommates, has a history of bipolar II and borderline personality disorder, and was admitted on 03/31/19 15:29 on a 201 voluntary commitment after she disclosed to an outpatient provider that she had placed liquid laundry bleach and a liquid fabric softener in her mouth but then spit them out in a suicide attempt. Chief Complaint "It's been good". Review of Systems Sleep Information Total Hours of Sleep: 6 Sleep Comments: received a dose of hs vistaril for sleep aid, she remains to have obstructed loud snoring when asleep Meal Information Percent Meal Consumed - Breakfast: 100 Percent Meal Consumed - Lunch: 100 Percent Meal Consumed - Dinner: 80 Subjective Subjective Patient was seen & assessed and interval progress reviewed with nursing and social work. Staff report she has been going to groups and participating, and had a good visit with friends last night, whom she had a meeting with today. They stated that the patient needs additional supports in place, and stated they felt in over their heads when the patient becomes suicidal. They want [facility] to [facility], and discussed the various services available. She agreed to a referral for a blended case picker, which she had before and felt it was helpful. They also discussed recent stressors, including a move, and encouraged her to make the most of her hospitalization to maximize stability. On my assessment, the patient reports mood and hallucinations have improved, and she thinks the medication adjustments have been helpful. She says her friends "gave me some hard truths." They told her she needs to ask for help and had some insights into her behavior, which was hard for her to hear, as they talked about the need to change her behaviors to change her mood. She initially felt like she was being confronted, but then realized that they were right. She wants to work on trusting others (friends, medical geneticist) and communication, which she sees as her biggest areas for improvement. She is hoping to get set up with a BCM and peer support, as she had these services in the past and found them helpful. She also recognizes that she needs to "be honest with myself," and wants to get back to journaling as a way to work on this. She wants to know if the hospital will reach out to her technical delivery manager to let her know if Physical Exam Psychiatric Orientation: alert and cooperative Apperance: appropriately dressed, appropriately groomed and appeared stated age Eye Contact: good eye contact Motor Behavior: steady gait and station and no abnormal motor movements Speech: normal rate/rhythm/volume of speech Affect: + blunted affect "Better." Thought Process: goal directed thought process Thought Content: reality based without delusions Suicidal Thoughts: denies suicidal thoughts Homicidal Thoughts: denies homicidal thoughts Hallucinations: no auditory hallucinations and no visual hallucinations Cognition: attention grossly intact and language grossly intact Insight: + fair insight Judgement: + fair judgement Vital Signs (Past 24 Hours) Last Vital Signs Temp 36.8 C 04/02/19 06:38 Pulse 106 H 04/02/19 06:41 Resp 20 04/02/19 06:38 BP 113/68 04/02/19 06:41 Pulse Ox 100 03/31/19 16:53 Results & Data Current Inpatient Medications Current Inpatient Medications: Current Inpatient Medications Acetaminophen (Tylenol) 650 mg PO Q4H PRN PRN Reason: Headache or Minor Fever Stop: 04/30/19 15:27 Al Hydrox/Mg Hydrox/Simethicone (Maalox) 30 ml PO Q4H PRN PRN Reason: GI Upset Stop: 04/30/19 15:27 Albuterol (Ventolin Hfa) 2 puffs INH TID JAH Stop: 04/30/19 20:59 Last Admin: 04/01/19 21:24 Dose: 2 puffs Documented by: Aripiprazole (Abilify) 10 mg PO QAM JAH Stop: 05/01/19 16:14 Last Admin: 04/01/19 17:11 Dose: 10 mg Documented by: Bismuth Subsalicylate (Kaopectate) 15 ml PO PRN PRN PRN Reason: Loose Stool Stop: 04/30/19 15:27 Hydroxyzine HCl (Vistaril) 10 mg PO QID PRN PRN Reason: Anxiety Stop: 04/30/19 15:24 Hydroxyzine HCl (Vistaril) 50 mg PO HSZ PRN PRN Reason: Insomnia Stop: 04/30/19 15:27 Last Admin: 04/01/19 21:29 Dose: 50 mg Documented by: Magnesium Hydroxide (Milk Of Magnesia) 30 ml PO DAILY PRN PRN Reason: Heartburn Stop: 04/30/19 15:27 Last Admin: 03/31/19 21:54 Dose: 30 ml Documented by: Miscellaneous (Order Awaiting Action) 1 ea N/A QS JAH Stop: 05/07/19 00:00 Miscellaneous (Order Awaiting Action) 1 ea N/A QS JAH Stop: 05/01/19 00:00 Last Admin: 04/01/19 16:38 Dose: Not Given Documented by: Pantoprazole Sodium (Protonix) 40 mg PO DAILY JAH Stop: 05/01/19 08:59 Last Admin: 04/01/19 10:00 Dose: 40 mg Documented by: Prazosin HCl (Prazosin Hcl) 2 mg PO HS [facility] Stop: 05/01/19 21:59 Last Admin: 04/01/19 21:24 Dose: 2 mg Documented by: Sodium Chloride ([place] Nasal) 1 - 2 sprays NA PRN PRN PRN Reason: Nasal Dryness/Congestion Stop: 04/30/19 15:27 Trazodone HCl (Desyrel) 200 mg PO HS JAH Stop: 04/30/19 21:59 Last Admin: 04/01/19 21:24 Dose: 200 mg Documented by: Mental Health & Subst Abuse Tx Therapist Name of Therapist: VICKI Pickard CPT Code CPT Code 86606
[2019-04-02] MEDS: ARIPiprazole 10 MG TAB PO SCH (08:51)
[2019-04-02] MEDS: PANTOprazole 40 MG TAB PO SCH (08:51)
[2019-04-02] MEDS: ALBUTEROL HFA 8 GM INHALER INH SCH ×3 (08:53→20:49)
[2019-04-02] MEDS: TRAZODONE HCL 100 MG TAB PO SCH (20:49)
[2019-04-02] MEDS: PRAZOSIN HCL 1 MG CAP PO SCH (20:50)
--- NOTE | 2019-04-03 08:14 | Psychiatric Progress Note ---
Date of Service April 03, 2019 Impression / Recommendations Impression 34-year-old transgender female with bipolar disorder II, borderline personality disorder, and posttraumatic stress disorder who is admitted with depression and suicidal thoughts with an episode of ingesting toxic substances in a suicide attempt, which she then spit out. She reports SI was triggered by return of disturbing visual hallucinations, and depression for the past month. On admission aripiprazole was increased by adding 10mg po daily, and recommending that her next Abilify Maintena (received 300 mg IM on 03/14/2019) be increased to 400 mg IM. (1) Bipolar 2 disorder: 04/01/19 -The patient provides a psychiatric history, consistent with bipolar disorder. -Her report is that she has been fairly stable on aripiprazole, most recently Abilify Maintena 300 mg every 4 weeks. -Specifically, she reports that although she has had some feelings of depression, she has not had elevated mood and has been able to function. -The patient tells me that she is fond of and trusts her outpatient psychiatrist at the [facility] in [place] -Oral aripiprazole 10 mg daily added, recommend 400 mg Abilify Maintena at the time of her next injection. 04/02 -Fasting labs ordered for tomorrow. -Family meeting held with patient's friends, who encouraged her to fully participate in treatment and explore options for increased outpatient supports, due to the severity of her symptoms and recent mood episodes with suicidal ideation. -Refer for a blended hospice case manager. She is also considering the healing room and a operating room specialist. 04/03 - Reviewed FG and FLP with patient all values WNLs. - She reports significant weight gain (about 100lbs in a year since starting Abilify). She reports regular exercise, but elevated appetite. Discussed trial of metformin off label for antipsychotic-induced weight gain, reviewed the risks, benefits, and side effects, and gave her an up-to-date patient handout on the medication. She agreed to a trial, and will start 500 mg twice daily with meals. Interaction identified because patient reports lactose intolerance with GI symptoms when she drinks milk; discussed with the pharmacist, who stated that different generic formulations of metformin may have different tolerability, and suggested starting with 500 mg twice daily with meals to determine her ability to tolerate the medication. (2) Borderline personality disorder: 04/01 -The patient describes a long-standing history, dating back to childhood, of difficulty regulating her mood and controlling her behaviors. These problematic behaviors have included intentional self-injurious behaviors, other impulsive acts that are not associated with klaudia or hypomania, a tendency to over value and devalue others, difficulty with personal identity, and difficulty sustaining relationships. -Nevertheless, the patient on many levels appears to be fairly high functioning, at least as she presents herself to us. Reports that she is a full-time student at [employer] have not yet been confirmed, but it has been confirmed that she has a background. Is also apparent that the patient has had a number of personal accomplishments. -We are encouraging the patient to participate in individual, group, and activity therapies as a way of identifying improved individual coping strategies. (3) Suicidal ideation: 04/01 -The patient spontaneously tells us that she was not making a suicide "gesture," and that she had had thoughts of causing her own . However, she notes that primarily she was disturbed by her troubling visual hallucinations, felt discouraged, and thought that perhaps an act such as drinking bleach would somehow allow her to enjoy a "reset" of her distress. -The patient is currently reporting that she is not having any thoughts of suicide and, in fact, has not had thoughts of suicide since the episode that precipitated the admission. -The patient refers to her active placing bleach and fabric softener into her mouth as "stupid" and notes that she had not been aware that it might have killed her or that it might have resulted in esophageal scarring that would possibly have interfered with her ability to eat and drink normally. She refers to the episode as a "big mistake." (4) PTSD (post-traumatic stress disorder): 04/02 -patient continued on her home dose of prazosin. Inventory Assets Strengths: Intelligent. Determined. Career oriented. Needs: Improved mood regulation. Resolution of impulsive behaviors. Improved individual coping strategies. Risk Factors Assessment Male: No : No Do You Have Access To A Gun?: No Health Problems: No Mental Health Diagnoses: Yes Substance Use Disorders: No Previous Attempt: Yes Previous Attempt; Highly Lethal: Yes Previous Attempt; Planned: Yes Previous Attempt; Didn't Tell Anyone: Yes Family History of Suicide: No (The patient says she does not know much about her family history and cannot say for sure if there is or is not a history of suicide. However, she believes that there is not.) Previous Psychiatric Hospitalization: No (As above, the patient knows little about her family of origin.) Hopelessness: No Smoker: No Protective Factors Assessment Zoroastrian Beliefs: Yes (The patient says that she is starting Spiritism) : No Responsible for Young Children: No Employed: No (Receives disability, both and SSI) Stable Relationships: Yes Supportive Family: No Good Rapport with Provider: Yes Absence of Any Risk Factors Above: No Interval History Identifying Information EUGENE JIMENES is a 34-year-old transgender male to female patient who lives in [place], [place] with roommates, has a history of bipolar II and borderline personality disorder, and was admitted on 03/31/19 15:29 on a 201 voluntary commitment after she disclosed to an outpatient provider that she had placed liquid laundry bleach and a liquid fabric softener in her mouth but then spit them out in a suicide attempt. Chief Complaint "Good, group was good". Review of Systems Sleep Information Total Hours of Sleep: 5.75 Sleep Comments: received a dose of hs vistaril for sleep aid, she remains to have obstructed loud snoring when asleep Meal Information Percent Meal Consumed - Breakfast: 100 Percent Meal Consumed - Lunch: 100 Percent Meal Consumed - Dinner: 100 Subjective Subjective Patient was seen & assessed and interval progress reviewed with nursing and social work. Staff report she slept in the group room due to her loud snoring, and sleep was disrupted. She agreed to referrals to the [facility] for case management. She is attending and participating in groups. On my assessment, she reports she is proud of herself for talking in groups, as it is hard for her. She talked about her family and trauma, and felt it was helpful. She was informed of her snoring and consideration of a sleep study. Mood continues to improve, and she denies SI. She reports overeating, in part due to boredom, but thinks Abilify may play a role as well. She has been on it almost a year, and has gained weight since starting it, despite exercising. Physical Exam Vital Signs (Past 24 Hours) Last Vital Signs Temp 36.7 C 04/03/19 06:41 Pulse 108 H 04/03/19 06:42 Resp 16 04/03/19 06:41 BP 101/65 08/11/19 06:42 Pulse Ox 100 03/31/19 16:53 Results & Data Laboratory Results Laboratory Results - last 24 hr 04/03/19 07:41 Fasting Glucose Pending Triglycerides Pending Cholesterol Pending LDL Cholesterol, Calc Pending VLDL Cholesterol, Calc Pending HDL Cholesterol Pending Cholesterol/HDL Ratio Pending Current Inpatient Medications Current Inpatient Medications: Current Inpatient Medications Acetaminophen (Tylenol) 650 mg PO Q4H PRN PRN Reason: Headache or Minor Fever Stop: 04/30/19 15:27 Al Hydrox/Mg Hydrox/Simethicone (Maalox) 30 ml PO Q4H PRN PRN Reason: GI Upset Stop: 04/30/19 15:27 Albuterol (Ventolin Hfa) 2 puffs INH TID JAH Stop: 04/30/19 20:59 Last Admin: 04/02/19 20:49 Dose: 2 puffs Documented by: Aripiprazole (Abilify) 10 mg PO QAM JAH Stop: 05/01/19 16:14 Last Admin: 04/02/19 08:51 Dose: 10 mg Documented by: Bismuth Subsalicylate (Kaopectate) 15 ml PO PRN PRN PRN Reason: Loose Stool Stop: 04/30/19 15:27 Hydroxyzine HCl (Vistaril) 10 mg PO QID PRN PRN Reason: Anxiety Stop: 04/30/19 15:24 Hydroxyzine HCl (Vistaril) 50 mg PO HSZ PRN PRN Reason: Insomnia Stop: 04/30/19 15:27 Last Admin: 04/02/19 20:53 Dose: 50 mg Documented by: Magnesium Hydroxide (Milk Of Magnesia) 30 ml PO DAILY PRN PRN Reason: Heartburn Stop: 04/30/19 15:27 Last Admin: 03/31/19 21:54 Dose: 30 ml Documented by: Miscellaneous (Order Awaiting Action) 1 ea N/A QS JAH Stop: 05/07/19 00:00 Miscellaneous (Order Awaiting Action) 1 ea N/A QS JAH Stop: 05/01/19 00:00 Last Admin: 04/03/19 00:16 Dose: Not Given Documented by: Pantoprazole Sodium (Protonix) 40 mg PO DAILY JAH Stop: 05/01/19 08:59 Last Admin: 04/02/19 08:51 Dose: 40 mg Documented by: Prazosin HCl (Prazosin Hcl) 2 mg PO HS JAH Stop: 05/01/19 21:59 Last Admin: 04/02/19 20:50 Dose: 2 mg Documented by: Sodium Chloride ([place] Nasal) 1 - 2 sprays NA PRN PRN PRN Reason: Nasal Dryness/Congestion Stop: 04/30/19 15:27 Trazodone HCl (Desyrel) 200 mg PO HS JAH Stop: 04/30/19 21:59 Last Admin: 04/02/19 20:49 Dose: 200 mg Documented by: Mental Health & Subst Abuse Tx Therapist Name of Therapist: VICKI - Dr. Pickard CPT Code CPT Code 31764
[2019-04-03 08:15] LABS: Glucose Fasting 84 mg/dl (70-99)
[2019-04-03 08:22] LABS: Chol HDL Ratio 3; Cholesterol 166 mg/dl (0-200); HDL Cholesterol 57 mg/dl; LDL Cholesterol Calculated 94 mg/dl; Triglycerides 73 mg/dl (0-150); VLDL Cholesterol 15 mg/dl
[2019-04-03] MEDS: ARIPiprazole 10 MG TAB PO SCH (08:44)
[2019-04-03] MEDS: PANTOprazole 40 MG TAB PO SCH (08:44)
[2019-04-03] MEDS: ALBUTEROL HFA 8 GM INHALER INH SCH ×3 (08:44→21:04)
[2019-04-03] MEDS ORDERED: METFORMIN HCL 500 MG TAB PO SCH (17:15)
[2019-04-03] MEDS: TRAZODONE HCL 100 MG TAB PO SCH (23:20)
[2019-04-03] MEDS: PRAZOSIN HCL 1 MG CAP PO SCH (23:21)
[2019-04-04] MEDS: ARIPiprazole 10 MG TAB PO SCH (08:52)
[2019-04-04] MEDS: PANTOprazole 40 MG TAB PO SCH (08:52)
[2019-04-04] MEDS: ALBUTEROL HFA 8 GM INHALER INH SCH (08:52)
[2019-04-04] MEDS ORDERED: METFORMIN HCL 500 MG TAB PO SCH (09:00)
--- NOTE | 2019-04-04 10:19 | Discharge Summary ---
Date of Service April 04, 2019 History of Present Illness The patient is a 34-year-old female (born male, status post gender reassignment surgery) with a long psychiatric history as well as a history of multiple psychiatric hospitalizations, often due to suicide threats or suicide attempts. The patient reports that she had been feeling somewhat depressed for the past month or 2 and, rather impulsively, decided to "do a reset" by sequentially taking which she referred to as a "sip" of liquid fabric softener and a "sip" of liquid bleach. She reports that both substances were noxious and she immediately spit them out and rinsed her mouth. She explains that by "reset" she meant that she thought that a self-harm gesture of this nature would somehow allow her to get a fresh start. She tells me that she did not intend to kill herself. She also reports that she feels that the behavior was "stupid" and she notes that she is frightened by the fact that she has been told that she ran a risk of scarring her esophagus to the degree that she would have difficulty swallowing food normally. (She reports that she has no tenderness, soreness, or other mouth symptoms at present.) The patient also tells me that she has a history of bipolar disorder as well as borderline personality disorder. She notes that when depressed, she tends to become withdrawn, apathetic, irritable, anergic, anhedonic, and sleepless. The patient notes that during manic episodes she has increased energy, decreased desire for sleep, and exercises impulsive behaviors with very poor judgmentsuch as spending "everything in my bank account on things I do not need," and engaging in sexual activities with strangers. The patient tells me that she has been frustrated recently by the recurrence of disturbing visual hallucinations. She notes that these have largely been under control until recently with Abilify Maintena 300 mg daily. The patient reports that the visual hallucinations are not accompanied by auditory hallucinations, and the visual hallucinations consist of 3 different "visions." These include a group of young girls playing "[employer]," a centipede that has a human face, and in apparition that is wearing a hooded and suggests a gruel or "the grim reaper." She does not recognize any of the persons in the visions that she experiences. She also has a history of a very traumatic childhood, and certain symptoms of PTSD including nightmares, and flashbacks. However, she notes that these have been much better recently a she is no longer experiences an exaggerated startle response. The patient was 1 of her mother's 10 children. The patient's father was not part of her childhood, and she tells me that she only met him once. The patient's mother decided to relinquish custody of all 10 children. Reportedly 7 of the 10 children were sent to live with other relatives, while the patient and 2 of her siblings were placed into foster care. This circumstance allowed the 7 siblings to maintain contact and to continue to feel part of the larger family, while the patient and her 2 remaining siblings were in various foster homes and had little or no contact with the other siblings. She tells me that at least 1 of her step parents publicly referred to her as "1 of God's unwanted children"and she always felt rejected and unwanted. Nevertheless, she worked hard to get an education, entered the , and juan alberto in the ranks of the . Her goal is to eventually become an officer in the , but she is aware that she has been told that she will not be able to reenlist at this point because she threatened physical harm against a employment training specialist who commanded her to engage in an activity that the patient did not think should be a priority. 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 Physical Exam Psychiatric Orientation: alert, oriented x 3 and cooperative Apperance: appropriately dressed, appropriately groomed and appeared stated age Eye Contact: good eye contact Motor Behavior: steady gait and station and no abnormal motor movements Speech: normal rate/rhythm/volume of speech Affect: euthymic affect and mood congruent with affect "Good." Thought Process: linear/logical thought process Thought Content: reality based without delusions Suicidal Thoughts: denies suicidal thoughts Homicidal Thoughts: denies homicidal thoughts Hallucinations: no auditory hallucinations and no visual hallucinations Cognition: recent memory grossly intact, remote memory grossly intact, attention grossly intact and language grossly intact Insight: good insight Judgement: good judgement Vital Signs (Past 24 Hours) Last Vital Signs Temp 36.7 C 04/04/19 09:51 Pulse 108 H 04/04/19 09:51 Resp 16 04/04/19 09:51 BP 101/65 04/04/19 09:51 Pulse Ox 100 04/04/19 09:51 Principal Diagnosis Bipolar disorder type II, most recent episode depressed. Psychiatric Data Patient was hospitalized on our unit for 4 days. On admission, her antipsychotic was increased to target hallucinations, and was effective and well tolerated. She reported antipsychotic-induced weight gain and was agreeable to a trial of metformin, which was started 04/03/2019. She attended and participated in groups and therapy, reported improved mood and resolution of hallucinations and suicidal thoughts. She had a family meeting with multiple friends on 04/02/2019, and they discussed their concerns that she does not have sufficient outpatient supports and often decreases her medications after she stabilizes on them, and symptoms return. She expressed willingness to increase her outpatient supports, and referrals were made for a blended case management through the [facility] and the heel caser through the [place]. She expressed a goal to work on being honest with herself and others about how she is doing and improving communication, and was able to work on these things during her hospital stay Day of Discharge Assessment Staff report the patient has been attending and participating in groups and therapy, reporting improved mood and feeling optimistic about her discharge plan. She has been consistently denied thoughts to harm herself or commit suicide, and feels having increased outpatient supports will be beneficial. She has been socializing with peers and participating fully in unit programming. She has discussed some of her past traumas in groups and said she is tried to be "brutally honest." On my assessment, she reports mood is "good," it has improved since admission. She denies thoughts to harm herself and thoughts of suicide, and feels safe leaving the hospital. She is looking forward to receiving additional outpatient supports. She denies side effects to the higher dose of aripiprazole or to Metformin. Transition of Care Transition Of Care Record: was reviewed with the patient Advance Directives Advance Directives Information Provided: Yes Advance Directives: No Mental Health Advance Directive: No Advance Directives on File: No Living Will: No Power of Production Intern: No Advance Directives Reason:: Declines as Mental Health Visit. Risk Factors Assessment Risk factors were mitigated by admission to the inpatient unit, adjusting medications to target psychotic and depressive symptoms and antipsychotic- induced weight gain, involving her in groups and therapy, family meeting with her friends who are her outpatient supports, referring her for additional outpatient services, involving her in groups and therapy, working on healthy coping skills and a discharge safety plan. She is reporting improved mood, consistently denying thoughts of suicide or self injury, performing ADLs independently, taking medications as prescribed, denied safety concerns with discharge, and stating willingness to follow up as an outpatient. She is requesting discharge, and if she is no longer at acute risk of harm to herself, can be managed as an outpatient at this time. She is not at elevated risk for harm to others, it has not endorsed thoughts to harm others or recent aggression. Male: No : No Do You Have Access To A Gun?: No Health Problems: No Mental Health Diagnoses: Yes Substance Use Disorders: No Previous Attempt: Yes Previous Attempt; Highly Lethal: Yes Previous Attempt; Planned: Yes Previous Attempt; Didn't Tell Anyone: Yes Family History of Suicide: No (The patient says she does not know much about her family history and cannot say for sure if there is or is not a history of suicide. However, she believes that there is not.) Previous Psychiatric Hospitalization: No (As above, the patient knows little about her family of origin.) Hopelessness: No Smoker: No Protective Factors Assessment Synagogue Beliefs: Yes (The patient says that she is starting Holiness) : No Responsible for Young Children: No Employed: No (Receives disability, both [employer] [place] and SSI) Stable Relationships: Yes Supportive Family: No Good Rapport with Provider: Yes Absence of Any Risk Factors Above: No Tobacco Cessation at Discharge Tobacco Cessation Medication Prescribed at Discharge: Not Applicable/Non-Smoker Total Time Total Time Spent: Greater Than 30 Minutes Total Time Includes: Examination of the patient, Discharge Planning and Medication Reconciliation Discharge Data Lab Results 03/31/19 03/31/19 03/31/19 10:30 10:30 11:03 WBC 5.30 RBC 4.58 Hgb 13.2 Hct 40.3 MCV 88.0 MCH 28.8 MCHC 32.8 RDW Std Deviation 47.8 H RDW Coeff of Faviola 14.9 H Plt Count 212 MPV 8.1 Immature Gran % (Auto) 0.2 Neut % (Auto) 52.6 Lymph % (Auto) 38.9 Quay % (Auto) 7.2 Eos % (Auto) 0.9 Baso % (Auto) 0.2 Immature Gran # (Auto) 0.01 Neut # (Auto) 2.79 Lymph # (Auto) 2.06 Quay # (Auto) 0.38 Eos # (Auto) 0.05 Baso # (Auto) 0.01 Sodium Potassium Chloride Carbon Dioxide Anion Gap BUN Creatinine Est Cr Clr Drug Dosing Est GFR ( Amer) Est GFR (Non-Af Amer) BUN/Creatinine Ratio Glucose Fasting Glucose Calcium Total Bilirubin AST ALT Alkaline Phosphatase Total Protein Albumin Globulin Albumin/Globulin Ratio Triglycerides Cholesterol LDL Cholesterol, Calc VLDL Cholesterol, Calc HDL Cholesterol Cholesterol/HDL Ratio TSH Urine Color Yellow Urine Appearance Clear Urine pH 5.0 Ur Specific Howell 1.015 Urine Protein Negative Urine Glucose (UA) Negative Urine Ketones Negative Urine Blood Negative Urine Nitrite Negative Urine Bilirubin Negative Urine Urobilinogen Negative Ur Leukocyte Esterase Negative Salicylates Urine Opiates Screen Neg Ur Methadone, Qual Neg Acetaminophen Urine Barbiturates Neg Ur Phencyclidine (PCP) Neg U Amphetamin/Meth Scrn Neg MDMA (Ecstasy) Screen Pos H U Benzodiazepines Scrn Neg Ur Cocaine Metabolite Neg U Marijuana (THC) Screen Neg Ethyl Alcohol mg/dL 03/31/19 03/31/19 03/31/19 11:03 11:03 11:03 WBC RBC Hgb Hct MCV MCH MCHC RDW Std Deviation RDW Coeff of Faviola Plt Count MPV Immature Gran % (Auto) Neut % (Auto) Lymph % (Auto) Quay % (Auto) Eos % (Auto) Baso % (Auto) Immature Gran # (Auto) Neut # (Auto) Lymph # (Auto) Quay # (Auto) Eos # (Auto) Baso # (Auto) Sodium 140 Potassium 3.8 Chloride 106 Carbon Dioxide 29 Anion Gap 5.0 BUN 9 Creatinine 0.94 Est Cr Clr Drug Dosing Not Reportable Est GFR ( Amer) 91.1 Est GFR (Non-Af Amer) 78.6 BUN/Creatinine Ratio 9.9 L Glucose 89 Fasting Glucose Calcium 8.5 Total Bilirubin 0.3 AST 16 ALT 26 Alkaline Phosphatase 74 Total Protein 7.3 Albumin 3.5 Globulin 3.8 Albumin/Globulin Ratio 0.9 Triglycerides Cholesterol LDL Cholesterol, Calc VLDL Cholesterol, Calc HDL Cholesterol Cholesterol/HDL Ratio TSH 2.890 Urine Color Urine Appearance Urine pH Ur Specific Howell Urine Protein Urine Glucose (UA) Urine Ketones Urine Blood Urine Nitrite Urine Bilirubin Urine Urobilinogen Ur Leukocyte Esterase Salicylates < 1.7 L Urine Opiates Screen Ur Methadone, Qual Acetaminophen < 2 L Urine Barbiturates Ur Phencyclidine (PCP) U Amphetamin/Meth Scrn MDMA (Ecstasy) Screen U Benzodiazepines Scrn Ur Cocaine Metabolite U Marijuana (THC) Screen Ethyl Alcohol mg/dL < 3.0 04/03/19 07:41 WBC RBC Hgb Hct MCV MCH MCHC RDW Std Deviation RDW Coeff of Faviola Plt Count MPV Immature Gran % (Auto) Neut % (Auto) Lymph % (Auto) Quay % (Auto) Eos % (Auto) Baso % (Auto) Immature Gran # (Auto) Neut # (Auto) Lymph # (Auto) Quay # (Auto) Eos # (Auto) Baso # (Auto) Sodium Potassium Chloride Carbon Dioxide Anion Gap BUN Creatinine Est Cr Clr Drug Dosing Est GFR ( Amer) Est GFR (Non-Af Amer) BUN/Creatinine Ratio Glucose Fasting Glucose 84 Calcium Total Bilirubin AST ALT Alkaline Phosphatase Total Protein Albumin Globulin Albumin/Globulin Ratio Triglycerides 73 Cholesterol 166 LDL Cholesterol, Calc 94 VLDL Cholesterol, Calc 15 HDL Cholesterol 57 Cholesterol/HDL Ratio 3 TSH Urine Color Urine Appearance Urine pH Ur Specific Howell Urine Protein Urine Glucose (UA) Urine Ketones Urine Blood Urine Nitrite Urine Bilirubin Urine Urobilinogen Ur Leukocyte Esterase Salicylates Urine Opiates Screen Ur Methadone, Qual Acetaminophen Urine Barbiturates Ur Phencyclidine (PCP) U Amphetamin/Meth Scrn MDMA (Ecstasy) Screen U Benzodiazepines Scrn Ur Cocaine Metabolite U Marijuana (THC) Screen Ethyl Alcohol mg/dL Hospital Course (1) Bipolar 2 disorder: 04/01/19 -The patient provides a psychiatric history, consistent with bipolar disorder. -Her report is that she has been fairly stable on aripiprazole, most recently Abilify Maintena 300 mg every 4 weeks. -Specifically, she reports that although she has had some feelings of depression, she has not had elevated mood and has been able to function. -The patient tells me that she is fond of and trusts her outpatient psychiatrist at the [facility] in [place] -Oral aripiprazole 10 mg daily added, recommend 400 mg Abilify Maintena at the time of her next injection. 04/02 -Fasting labs ordered for tomorrow. -Family meeting held with patient's friends, who encouraged her to fully participate in treatment and explore options for increased outpatient supports, due to the severity of her symptoms and recent mood episodes with suicidal ideation. -Refer for a blended heel caser. She is also considering the healing room and a health benefits specialist. 04/03 - Reviewed FG and FLP with patient all values WNLs. - She reports significant weight gain (about 100lbs in a year since starting Abilify). She reports regular exercise, but elevated appetite. Discussed trial of metformin off label for antipsychotic-induced weight gain, reviewed the risks, benefits, and side effects, and gave her an up-to-date patient handout on the medication. She agreed to a trial, and will start 500 mg twice daily with meals. Interaction identified because patient reports lactose intolerance with GI symptoms when she drinks milk; discussed with the pharmacist, who stated that different generic formulations of metformin may have different tolerability, and suggested starting with 500 mg twice daily with meals to determine her ability to tolerate the medication. (2) Borderline personality disorder: 04/01 -The patient describes a long-standing history, dating back to childhood, of difficulty regulating her mood and controlling her behaviors. These problematic behaviors have included intentional self-injurious behaviors, other impulsive acts that are not associated with klaudia or hypomania, a tendency to over value and devalue others, difficulty with personal identity, and difficulty sustaining relationships. -Nevertheless, the patient on many levels appears to be fairly high functioning, at least as she presents herself to us. Reports that she is a full-time student at [employer] have not yet been confirmed, but it has been confirmed that she has a background. Is also apparent that the patient has had a number of personal accomplishments. -We are encouraging the patient to participate in individual, group, and activity therapies as a way of identifying improved individual coping strategies. (3) Suicidal ideation: 04/01 -The patient spontaneously tells us that she was not making a suicide "gesture," and that she had had thoughts of causing her own . However, she notes that primarily she was disturbed by her troubling visual hallucinations, felt discouraged, and thought that perhaps an act such as drinking bleach would somehow allow her to enjoy a "reset" of her distress. -The patient is currently reporting that she is not having any thoughts of suicide and, in fact, has not had thoughts of suicide since the episode that precipitated the admission. -The patient refers to her active placing bleach and fabric softener into her mouth as "stupid" and notes that she had not been aware that it might have killed her or that it might have resulted in esophageal scarring that would possibly have interfered with her ability to eat and drink normally. She refers to the episode as a "big mistake." (4) PTSD (post-traumatic stress disorder): 04/02 -patient continued on her home dose of prazosin. Mental Health & Subst Abuse Tx Psychiatrist Name of Psychiatrist: [facility] Dr. Yen Psychiatrist's Date of Appointment with Psychiatrist: 04/11/19 Time of Appointment with Psychiatrist: 8:30 a.m. Psychiatric Appointment Comment: [address] [place] [address] Psychiatrist Release of Information: Obtained, Reviewed and Signed Therapist Name of Therapist: [facility] Dr. Pickard Therapist's Date of Therapist Appointment: 04/15/19 Time of Therapist Appointment: 7:30 a.m. Therapy Appointment Comment: [address] [place] [address] Therapist Release of Information: Obtained, Reviewed and Signed Rental Car Porter Name of Rental Car Porter: [facility] Phone Number for Rental Car Porter: [phone] Time of Appointment with Rental Car Porter: Will call to follow up - if you dont hear from them, please call Case Management Appointment Comment: [address] [facility], [address], [place] Rental Car Porter Release of Information: Obtained, Reviewed and Signed Post Discharge Appointments Smoking Cessation Counseling Tobacco Cessation Medication Prescribed at Discharge: Not Applicable/Non-Smoker Contact Information Discharge Discharge Address: [address] [place] [address], [address], [place] Discharge Plan Discharge Items Patient Disposition: Home - Self-Care Reason For Visit: BIPOLAR II Discharge Diagnosis: Bipolar type II, PTSD, BPD Discharge Goals: Decrease discomfort, Specific goals and Therapeutic intervention Specific Goals: Refer for increased outpatient supports/services Activity: Per 'Additional Instructions' section Non-emergency contact: Psychiatrist, Therapist and Well Digger Call non-emergency contact if: you have any medication questions and your symptoms worsen Follow-up/Referrals: PCP,NO [Primary Care Provider] - Diet: Gluten Free Addtl Provider Instructions: SPECIAL CARE INSTRUCTIONS: 1. Follow through with your scheduled aftercare appointments. If unable to keep an appointment, please call to reschedule. 2. Take your medication only as prescribed. Medication should not be changed or stopped without the approval of your doctor. In the event of worsening symptoms or concerns about side effects, contact your doctor immediately. 3. Utilize new healthy coping skills, anger management skills, and stress management skills learned during your hospitalization. Journal feelings and process them with a support person. Identify stressors or situations that may result in relapse, deterioration or inappropriate behaviors and develop a plan to deal with those issues. 4. If your coping skills are ineffective and you are in crisis, contact your outpatient providers for direction. If unable to reach your providers, please call [facility] HELP LINE AT or go to the closest Emergency Room. 5. Avoid alcohol and un-prescribed drugs. 6. You have been provided with the Mental Health Advance Directives Pamphlet for your review. AFTERCARE APPOINTMENTS: * Please call your insurance company prior to your scheduled appointment to confirm your aftercare providers are covered. Take your insurance information to your appointments. WHO TO CALL AND WHEN: Medical Emergencies: For questions or emergencies related to your hospital stay, please contact the Inpatient Behavioral Health Unit at [phone]. A shuttlecock feather trimmer is on-call 16/03 for the Behavioral Health Unit for emergencies At any time you feel your situation is an emergency, you may also call [phone] immediately. Your Doctors Instructions noted above were prepared by provider Yolande Bush MD. Prescriptions: New metformin [Glucophage] 500 mg Tablet 500 mg PO BIDM Qty: 60 RF: 0 aripiprazole [Abilify] 10 mg Tablet 10 mg PO QAM Qty: 30 RF: 0 Continued prazosin 2 mg Capsule 2 mg PO HS RF: 0 omeprazole 20 mg Tablet,Delayed Release (Dr/Ec) 20 mg PO DAILY RF: 0 melatonin 3 mg Tablet 6 mg PO HS RF: 0 trazodone 100 mg Tablet 200 mg PO HS RF: 0 hydroxyzine HCl 10 mg Tablet 10 mg PO BID PRN (Reason: Anxiety) RF: 0 Abilify Maintena 400 mg Suspension,Extended Rel Syring 400 mg IM MONTHLY RF: 0 estradiol valerate 10 mg/mL Oil See Rx Instructions .ROUTE .COMPLEX RF: 0 methylphenidate HCl [Concerta] 18 mg Tablet Extended Release 24hr 18 mg PO QAM RF: 0 albuterol sulfate 90 mcg/actuation Hfa Aerosol Inhaler 2 puff INHALATION TID RF: 0 Stand-Alone Forms: [facility] Discharge Orders: Discharge Order (Routine); Ordered 04/04/19 Ordered By: Yolande Bush Admission Data Admit Date/Time: 03/31/19 15:29 Attending Provider: Francisco Javier Goodwin Admit Provider: Yolande Bush Primary Care Provider: PCP,NO Service: Psychiatry Other Interventions: Discharge Summary Assessment (RN) Last Done: 04/04/19 09:51 PSY Interdisciplinary Discharge Planning Last Done: 04/04/19 10:03 Pending Studies at Discharge: No
== END 2019-04-04 11:45 | disposition home or self-care (01) | DRG 885 ==
LOC: ED 10:20 → 3S 15:29